=== PATIENT | female | born 1935 | race Caucasian/White ===

== ENCOUNTER 2020-11-29 12:37 | Emergency (ER) | payer MEDICARE, OTHER ==
[~2020-11-29 12:37] MED LIST: ALLOPURINOL 10100 MG PO; ASPIRIN EC81 MG PO; COREG 6.25MG6.25 MG PO; DEMADEX20 MG PO; GLIPIZIDE ER10 MG PO; LEVEMIR VI100 UNITS/ SC; LOSARTAN-HCTZ1 EAC1 PO; NITROQUIK SL0.4 MG SL; NORCO 5-325 TA1 EACH PO; VALIUM10 MG PO; ZOCOR20 MG PO
== END 2020-11-29 14:50 | disposition left against medical advice (07) ==
LOC: FER 12:37
DX: R51.9 Headache, unspecified (principal); M54.9 Dorsalgia, unspecified; M25.519 Pain in unspecified shoulder; M54.2 Cervicalgia; Z53.8 Procedure and treatment not carried out for other reasons

== ENCOUNTER 2020-12-26 02:57 | Day surgery (SDCO) | payer MEDICARE, OTHER ==
[2020-12-26 03:54] LABS: BASOPHIL 0.8 % (0-2); EOSINOPHIL 0.9 % (0-7); HCT 34.8 % (37.0-47.0); HGB 11.3 g/dl (12.5-16.0); LYMPHOCYTE 14.3 % (15-48); MCH 34.5 pg (25.0-31.0); MCHC 32.5 g/dL (32.0-36.0); MCV 106.1 fL (78.0-100.0); MONOCYTE 9.4 % (0-12); MPV 13.4 fL (6.0-9.5); NEUTROPHIL 73.3 % (41-80); NRBC 0.3; PLT 167 K/uL (150-400); RBC 3.28 M/uL (4.20-5.40); WBC 7.7 K/uL (4.0-10.5)
[2020-12-26 04:12] LABS: INR 1.07 (0.9-1.2); PROTHROMBIN TIME 13.2 SECONDS (11.4-13.6)
[2020-12-26 04:54] LABS: BILIRUBIN NEGATIVE (NEGATIVE); BLOOD NEGATIVE Ery/uL (NEGATIVE); CLARITY CLEAR (CLEAR); COLOR YELLOW (YELLOW); GLUCOSE (U) 1+ mg/dL (NORMAL); LEUKOCYTES 2+ Leu/uL (NEGATIVE); NITRITE NEGATIVE (NEGATIVE); PROTEIN NEGATIVE (NEGATIVE); SPECIFIC GRAVITY 1.015 (1.001-1.030); UROBILINOGEN 0.2 mg/dL (0.2-1.0)
[2020-12-26 05:00] LABS: BACTERIA TRACE; TRANSITIONAL EPITHELIAL CELLS RARE; URINARY WBC RARE
[2020-12-26 05:40] LABS: BUN/CREAT RATIO (CALC) 23.6 RATIO; CREATININE 0.72 mg/dL (0.51-0.95); POTASSIUM 4.2 mmol/L (3.5-5.1)
[2020-12-26] MEDS ORDERED: NEURONTIN300 MG PO (11:42)
[2020-12-26] MEDS ORDERED: COZAAR100 MG PO (16:22)
[2020-12-26] MEDS ORDERED: HCTZ25 MG PO (16:22)
[2020-12-26] MEDS ORDERED: MAG-OXIDE 400M400 MG PO (16:22)
[2020-12-26] MEDS ORDERED: AMARYL 2MG TABLE2 MG PO (16:23)
[2020-12-26] MEDS ORDERED: ANASTROZOLE1 MG PO (16:23)
[2020-12-26] MEDS ORDERED: VITAMIN D3125 MC1 PO (16:23)
[2020-12-27 05:48] LABS: BASOPHIL 0.7 % (0-2); EOSINOPHIL 1.7 % (0-7); HCT 34.2 % (37.0-47.0); LYMPHOCYTE 24.2 % (15-48); MCH 34.5 pg (25.0-31.0); MCHC 32.2 g/dL (32.0-36.0); MCV 107.2 fL (78.0-100.0); MONOCYTE 8.8 % (0-12); MPV 13.1 fL (6.0-9.5); NEUTROPHIL 63.6 % (41-80); NRBC 0; RBC 3.19 M/uL (4.20-5.40); RDW 13.8 % (11.5-14.0); WBC 8.8 K/uL (4.0-10.5)
[2020-12-27 05:54] LABS: PLT 174 K/uL (150-400)
[2020-12-27 05:55] LABS: BUN/CREAT RATIO (CALC) 21.8 RATIO; CREATININE 0.87 mg/dL (0.51-0.95); POTASSIUM 4.1 mmol/L (3.5-5.1)
[2020-12-27] MEDS ORDERED: LANTUS **100 UNITS/ SC (09:17)
--- NOTE | 2020-12-27 10:03 | NUR ---
12/27/20 Ms. Arce is a 85 y/o woman. She and her spouse share a home together half of the time. Ms. Arce has a rollator. She reports to be modified independent in the home and community. She is able to manage her ADL and IADLS. Ms. Arce was not interested in HH, LTADD, or an emergency alert system. - Report given to MS CHRISTAL Gay.
== END 2020-12-27 10:13 | disposition home or self-care (01) ==
LOC: FER 02:57 → FTCU 07:44 → FMS 15:41
PROVIDERS: Student in an Organized Health Care Education/Training Program; ADMIT Internal Medicine
DX: E11.649 Type 2 diabetes mellitus with hypoglycemia without coma (principal); E11.40 Type 2 diabetes mellitus with diabetic neuropathy, unspecified; E78.5 Hyperlipidemia, unspecified; E03.9 Hypothyroidism, unspecified; I10 Essential (primary) hypertension; M10.9 Gout, unspecified; F41.9 Anxiety disorder, unspecified; R07.89 Other chest pain; Z79.4 Long term (current) use of insulin; Z85.3 Personal history of malignant neoplasm of breast; Z90.710 Acquired absence of both cervix and uterus; Z98.890 Other specified postprocedural states; Z90.49 Acquired absence of other specified parts of digestive tract; Z88.0 Allergy status to penicillin; Z79.899 Other long term (current) drug therapy; Z20.822 Contact with and (suspected) exposure to COVID-19; Z90.10 Acquired absence of unspecified breast and nipple
CPT/HCPCS: 36415; 71045; 80048; 81001; 82962; 83036; 84484; 85025; 85610; 93005; G0378; J2405; U0002

== ENCOUNTER 2021-02-02 20:09 | Emergency (ER) | payer OTHER, MEDICARE ==
[~2021-02-02 20:09] MED LIST changes: +AMARYL 2MG TABLE2 MG PO; +ANASTROZOLE1 MG PO; +COZAAR100 MG PO; +HCTZ25 MG PO; +LANTUS **100 UNITS/ SC; +MAG-OXIDE 400M400 MG PO; +NEURONTIN300 MG PO; +VITAMIN D3125 MC1 PO
[2021-02-02 23:25] LABS: BASOPHIL 0.8 % (0-2); EOSINOPHIL 2.3 % (0-7); HCT 33.3 % (37.0-47.0); HGB 10.9 g/dl (12.5-16.0); LYMPHOCYTE 36.9 % (15-48); MCH 34.9 pg (25.0-31.0); MCHC 32.7 g/dL (32.0-36.0); MCV 106.7 fL (78.0-100.0); NEUTROPHIL 48.2 % (41-80); NRBC 0; PLT 208 K/uL (150-400); RBC 3.12 M/uL (4.20-5.40); RDW 13.9 % (11.5-14.0); WBC 6.6 K/uL (4.0-10.5)
[2021-02-02 23:28] LABS: INR 1.1 (0.9-1.2); PROTHROMBIN TIME 13.5 SECONDS (11.4-13.6)
[2021-02-02 23:40] LABS: ALBUMIN 3.6 g/dL (3.4-5.0); BILIRUBIN - TOTAL 0.2 mg/dL (0.2-1.0); BUN/CREAT RATIO (CALC) 31.2 RATIO; CREATININE 0.77 mg/dL (0.51-0.95); GLOBULIN (CALCULATION) 3.4 g/dL; POTASSIUM 3.6 mmol/L (3.5-5.1)
== END 2021-02-03 00:40 | disposition other institution (70) ==
LOC: FER 20:09
PROVIDERS: Emergency Medicine
DX: S06.5X9A Traumatic subdural hemorrhage with loss of consciousness of unspecified duration, initial encounter (principal); T14.8XXA Other injury of unspecified body region, initial encounter; M25.512 Pain in left shoulder; M25.562 Pain in left knee; M54.5 Low back pain; M54.2 Cervicalgia; I10 Essential (primary) hypertension; E11.9 Type 2 diabetes mellitus without complications; V49.40XA Driver injured in collision with unspecified motor vehicles in traffic accident, initial encounter; Y92.410 Unspecified street and highway as the place of occurrence of the external cause; Z90.12 Acquired absence of left breast and nipple; Z20.822 Contact with and (suspected) exposure to COVID-19
CPT/HCPCS: 36415; 70450; 71045; 72100; 72125; 73030; 73560; 80053; 83690; 85025; 85610; U0002

== ENCOUNTER 2021-03-02 17:13 | Emergency (ER) | payer MEDICARE, OTHER ==
[2021-03-02 18:46] LABS: BASOPHIL 0.7 % (0-2); EOSINOPHIL 1.2 % (0-7); HGB 11.6 g/dl (12.5-16.0); LYMPHOCYTE 32.5 % (15-48); MCH 34.9 pg (25.0-31.0); MCHC 33.1 g/dL (32.0-36.0); MCV 105.4 fL (78.0-100.0); MONOCYTE 10.9 % (0-12); MPV 13.7 fL (6.0-9.5); NRBC 0.3; PLT 207 K/uL (150-400); RBC 3.32 M/uL (4.20-5.40); RDW 13.5 % (11.5-14.0); WBC 7.4 K/uL (4.0-10.5)
[2021-03-02 18:48] LABS: INR 1.07 (0.9-1.2); PROTHROMBIN TIME 13.2 SECONDS (11.4-13.6)
[2021-03-02 18:49] LABS: PTT 26.5 SECONDS (22.2-34.7)
[2021-03-02 19:03] LABS: ALBUMIN 3.9 g/dL (3.4-5.0); BILIRUBIN - TOTAL 0.4 mg/dL (0.2-1.0); BUN/CREAT RATIO (CALC) 29.4 RATIO; CREATININE 0.85 mg/dL (0.51-0.95); GLOBULIN (CALCULATION) 3.6 g/dL; MAGNESIUM 1.9 mg/dL (1.8-2.4); POTASSIUM 3.5 mmol/L (3.5-5.1); TOTAL PROTEIN 7.5 g/dL (6.4-8.2)
[2021-03-02 19:05] LABS: PRO-BNP 258 pg/mL (<450)
[2021-03-02 20:50] LABS: BILIRUBIN NEGATIVE (NEGATIVE); BLOOD NEGATIVE Ery/uL (NEGATIVE); CLARITY CLEAR (CLEAR); COLOR YELLOW (YELLOW); GLUCOSE (U) NORMAL (NORMAL); LEUKOCYTES TRACE Leu/uL (NEGATIVE); NITRITE NEGATIVE (NEGATIVE); PROTEIN NEGATIVE (NEGATIVE); SPECIFIC GRAVITY 1.015 (1.001-1.030); UROBILINOGEN 0.2 mg/dL (0.2-1.0); pH 5.5 (5.0-9.0)
[2021-03-02 21:00] LABS: AMORPHOUS URATES CRYSTALS TRACE; BACTERIA TRACE; SQUAMOUS EPITHELIAL CELLS RARE; URINARY RBC RARE; URINARY WBC RARE
[2021-03-02] MEDS ORDERED: NITROQUIK SL0.4 MG SL (22:29)
== END 2021-03-02 22:45 | disposition home or self-care (01) ==
LOC: FER 17:13
PROVIDERS: Emergency Medicine
DX: S70.01XA Contusion of right hip, initial encounter (principal); R07.9 Chest pain, unspecified; R00.1 Bradycardia, unspecified; I25.2 Old myocardial infarction; E11.9 Type 2 diabetes mellitus without complications; W18.40XA Slipping, tripping and stumbling without falling, unspecified, initial encounter; Y93.01 Activity, walking, marching and hiking; Y92.000 Kitchen of unspecified non-institutional (private) residence as the place of occurrence of the external cause
CPT/HCPCS: 36415; 70450; 71045; 73502; 73560; 80053; 81001; 83735; 83880; 84484; 85025; 85610; 85730; 93005

== ENCOUNTER 2021-09-12 15:07 | Emergency (ER) | payer MEDICARE, OTHER ==
[2021-09-12 16:31] LABS: BASOPHIL 0.6 % (0-2); EOSINOPHIL 1.4 % (0-7); HCT 37.5 % (37.0-47.0); HGB 12.2 g/dl (12.5-16.0); LYMPHOCYTE 39.9 % (15-48); MCH 34.7 pg (25.0-31.0); MCHC 32.5 g/dL (32.0-36.0); MCV 106.5 fL (78.0-100.0); MONOCYTE 14.4 % (0-12); MPV 13.2 fL (6.0-9.5); NEUTROPHIL 42.9 % (41-80); NRBC 0; PLT 153 K/uL (150-400); RBC 3.52 M/uL (4.20-5.40); RDW 13.8 % (11.5-14.0); WBC 3.6 K/uL (4.0-10.5)
[2021-09-12 16:40] LABS: INR 1.15 (0.9-1.2); PROTHROMBIN TIME 14.1 SECONDS (11.8-13.4)
[2021-09-12 16:41] LABS: PTT 29.2 SECONDS (24.4-34.7)
[2021-09-12 16:49] LABS: ALBUMIN 3.5 g/dL (3.4-5.0); BILIRUBIN - TOTAL 0.4 mg/dL (0.2-1.0); BUN/CREAT RATIO (CALC) 29.8 RATIO; CREATININE 0.84 mg/dL (0.51-0.95); GLOBULIN (CALCULATION) 3.4 g/dL; POTASSIUM 3.9 mmol/L (3.5-5.1); TOTAL PROTEIN 6.9 g/dL (6.4-8.2)
[2021-09-12 16:50] LABS: LACTIC ACID 1.3 mmol/L (0.4-1.9)
[2021-09-12 16:53] LABS: PRO-BNP 2034 pg/mL (<450)
[2021-09-12 17:04] LABS: CORONAVIRUS 2019 SARS-COV-2 NEGATIVE (NEGATIVE); INFLUENZA A NAA NEGATIVE (NEGATIVE)
[2021-09-12] MEDS ORDERED: AZITHROMYCIN250 MG PO (19:21)
== END 2021-09-12 19:27 | disposition home or self-care (01) ==
LOC: FER 15:07
PROVIDERS: Emergency Medicine
DX: J40 Bronchitis, not specified as acute or chronic (principal); E11.40 Type 2 diabetes mellitus with diabetic neuropathy, unspecified; I10 Essential (primary) hypertension; Z20.822 Contact with and (suspected) exposure to COVID-19; Z86.73 Personal history of transient ischemic attack (TIA), and cerebral infarction without residual deficits; Z79.82 Long term (current) use of aspirin; Z79.4 Long term (current) use of insulin; Z88.0 Allergy status to penicillin
CPT/HCPCS: 36415; 71250; 80053; 83605; 83880; 84484; 85025; 85610; 85730; 93005; 94640; 94664; U0002

== ENCOUNTER 2022-01-29 19:56 | Inpatient (IN) | payer MEDICARE, OTHER ==
[~2022-01-29] VITALS: Ht 165.1 cm; Wt 91.8 kg
[~2022-01-29 19:56] MED LIST changes: +AZITHROMYCIN250 MG PO
[2022-01-29 20:15] LABS: BASOPHIL 0.8 % (0-2); HCT 34.8 % (37.0-47.0); HGB 11.4 g/dl (12.5-16.0); LYMPHOCYTE 29.3 % (15-48); MCH 34.5 pg (25.0-31.0); MCHC 32.8 g/dL (32.0-36.0); MCV 105.5 fL (78.0-100.0); MONOCYTE 10.6 % (0-12); MPV 13.8 fL (6.0-9.5); NEUTROPHIL 57.4 % (41-80); NRBC 0; PLT 201 K/uL (150-400); RDW 14.1 % (11.5-14.0)
[2022-01-29 20:24] LABS: INR 1.14 (0.9-1.2)
[2022-01-29 20:25] LABS: PTT 29.1 SECONDS (24.4-34.7)
[2022-01-29 20:39] LABS: ALBUMIN 3.8 g/dL (3.4-5.0); BILIRUBIN - TOTAL 0.5 mg/dL (0.2-1.0); CREATININE 0.76 mg/dL (0.51-0.95); FT4 (FREE T4) 0.9 ng/dL (0.76-1.46); GLOBULIN (CALCULATION) 3.4 g/dL; POTASSIUM 3.7 mmol/L (3.5-5.1); TOTAL PROTEIN 7.2 g/dL (6.4-8.2)
[2022-01-29] MEDS ORDERED: TOPROL XL 25MG25 MG PO (23:27)
[2022-01-29] MEDS ORDERED: ASPIRIN EC81 MG PO (23:27)
[2022-01-29] MEDS ORDERED: HUMALOG 75100 UNIT/M SQ (23:29)
[2022-01-29] MEDS ORDERED: TRESIBA100 UNIT/1 SC (23:31)
[2022-01-30 07:56] LABS: BASOPHIL 0.9 % (0-2); EOSINOPHIL 1.4 % (0-7); HCT 35.4 % (37.0-47.0); HGB 11.3 g/dl (12.5-16.0); MCH 34.1 pg (25.0-31.0); MCHC 31.9 g/dL (32.0-36.0); MCV 106.9 fL (78.0-100.0); MONOCYTE 11.2 % (0-12); MPV 14.3 fL (6.0-9.5); NEUTROPHIL 54.7 % (41-80); NRBC 0; PLT 192 K/uL (150-400); RBC 3.31 M/uL (4.20-5.40); RDW 14.2 % (11.5-14.0); WBC 7.9 K/uL (4.0-10.5)
[2022-01-30 08:16] LABS: ALBUMIN 3.6 g/dL (3.4-5.0); BILIRUBIN - TOTAL 0.7 mg/dL (0.2-1.0); CREATININE 0.68 mg/dL (0.51-0.95); GLOBULIN (CALCULATION) 3.2 g/dL; POTASSIUM 4.1 mmol/L (3.5-5.1); TOTAL PROTEIN 6.8 g/dL (6.4-8.2)
[2022-01-30 22:32] LABS: BILIRUBIN NEGATIVE (NEGATIVE); BLOOD NEGATIVE Ery/uL (NEGATIVE); CLARITY CLEAR (CLEAR); COLOR YELLOW (YELLOW); GLUCOSE (U) NORMAL (NORMAL); LEUKOCYTES TRACE Leu/uL (NEGATIVE); NITRITE NEGATIVE (NEGATIVE); PROTEIN NEGATIVE (NEGATIVE); SPECIFIC GRAVITY 1.025 (1.001-1.030)
[2022-01-30 22:37] LABS: MUCOUS TRACE; SQUAMOUS EPITHELIAL CELLS RARE
[2022-01-31] MEDS ORDERED: ASPIRIN EC325 MG PO (12:28)
[2022-01-31] MEDS ORDERED: FLORANEX TABLE1 EACH PO (12:28)
[2022-01-31] MEDS ORDERED: LIPITOR40 MG PO (12:28)
[2022-01-31] MEDS ORDERED: VIBRAMYCIN100 MG PO (12:28)
== END 2022-01-31 13:45 | disposition home or self-care (01) | DRG 65 ==
LOC: FER 19:56 → FMS 21:51
PROVIDERS: Internal Medicine; ADMIT Internal Medicine
DX: I63.89 Other cerebral infarction (principal); I48.20 Chronic atrial fibrillation, unspecified; Z20.822 Contact with and (suspected) exposure to COVID-19; R29.700 NIHSS score 0; G83.24 Monoplegia of upper limb affecting left nondominant side; R20.0 Anesthesia of skin; I10 Essential (primary) hypertension; E11.9 Type 2 diabetes mellitus without complications; E78.5 Hyperlipidemia, unspecified; Z79.82 Long term (current) use of aspirin; Z90.49 Acquired absence of other specified parts of digestive tract; Z98.890 Other specified postprocedural states; Z90.710 Acquired absence of both cervix and uterus; Z79.899 Other long term (current) drug therapy; Z90.12 Acquired absence of left breast and nipple; Z85.3 Personal history of malignant neoplasm of breast; Z88.0 Allergy status to penicillin; Z88.1 Allergy status to other antibiotic agents
CPT/HCPCS: 36415; 70450; 70551; 71045; 80053; 80061; 81001; 82962; 83036; 83690; 83880; 84145; 84439; 84443; 84484; 85025; 85610; 85730; 93005; 93880; 97162; 97166; 97535; G0378; J1644; J2405; J7030; Q9967; U0002